=== PATIENT | female | born 1945 | race Caucasian/White ===

== ENCOUNTER 2025-02-05 09:08 | Outpatient (CLI) | payer MEDICARE | END 2025-02-05 09:09 | disposition home or self-care (01) | LOC: CSHLAB 09:08 | PROVIDERS: ATTEND Student in an Organized Health Care Education/Training Program | DX: Z01.818 Encounter for other preprocedural examination (principal); N99.3 Prolapse of vaginal vault after hysterectomy | CPT/HCPCS: 93005; 93010 ==

== ENCOUNTER 2025-02-05 09:30 | Observation (INO) | payer MEDICARE ==
[2025-02-05 10:41] LABS: Hematocrit 39.4 % (34.9-44.5); Hemoglobin 13.2 g/dL (12.0-15.5); Mean Corpuscular Hemoglobin 30.8 pg (27.0-33.0); Mean Corpuscular Volume 91.8 fL (81.6-98.3); Platelet Count 228 10x3/uL (150-450); Red Blood Cell (RBC) Count 4.29 10x6/uL (3.90-5.03); White Blood Cell (WBC) Count 6.28 10x3/uL (3.5-10.5)
[2025-02-25] MEDS ORDERED: Famotidine/PF 20 mg/2ml Vial ONE (07:53)
[2025-02-25] MEDS ORDERED: PROPOFOL 20 ML ONE (08:30)
[2025-02-25] MEDS ORDERED: Ondansetron PF 4 MG/2 ML Vial ONE (08:31)
[2025-02-25] MEDS ORDERED: Rocuronium Bromide 10 MG/ML (10ML VIAL) ONE (08:31)
[2025-02-25] MEDS ORDERED: SUGAMMADEX SODIUM 200 MG/2 ML VIAL ONE (08:31)
[2025-02-25] MEDS ORDERED: Lidocaine 1% PF 5 ML VIAL ONE (08:31)
[2025-02-25] MEDS ORDERED: Lidocaine 1% w/Epinephrine 1:200K 30 ML VIAL ONE (09:22)
[2025-02-25] MEDS ORDERED: CEFAZOLIN 2 GM VIAL ONE (09:35)
[2025-02-25] MEDS ORDERED: Simethicone Chewable 80 MG TAB PO PRN (11:10)
[2025-02-25] MEDS ORDERED: Ondansetron PF 4 MG/2 ML Vial IVP PRN (11:10)
[2025-02-25] MEDS ORDERED: HYDROcodone/Acetaminophen 5/325 mg Tablet PO PRN ×2 (11:10)
[2025-02-25] MEDS ORDERED: diphenhydrAMINE 25 MG CAP PO PRN (11:10)
[2025-02-25] MEDS ORDERED: Bisacodyl 10 MG SUPP PR PRN (11:10)
[2025-02-25] MEDS ORDERED: HYDROmorphone 0.5 MG/0.5 ML SYRINGE ONE ×2 (11:45→12:06)
[2025-02-25 14:19] VITALS: BMI 27.5
[2025-02-25] MEDS: Ketorolac Tromethamine 30 MG (1 mL) VIAL IVP SCH (18:39)
[2025-02-26 06:33] LABS: Hematocrit 32.5 % (34.9-44.5); Hemoglobin 10.9 g/dL (12.0-15.5); Mean Corpuscular Hemoglobin 30.4 pg (27.0-33.0); Mean Corpuscular Volume 90.8 fL (81.6-98.3); Platelet Count 214 10x3/uL (150-450); Red Blood Cell (RBC) Count 3.58 10x6/uL (3.90-5.03); White Blood Cell (WBC) Count 10.03 10x3/uL (3.5-10.5)
[2025-02-26 08:03] VITALS: BP 125/59; TEMP 98.2
[2025-03-02] MEDS ORDERED: Ibuprofen 200 MG TAB PO SCH (23:59)
== END 2025-02-26 11:20 | disposition home or self-care (01) ==
LOC: INTOOBSV 02-25 07:23 → CSHTELE 02-25 07:23
PROVIDERS: ADMIT Student in an Organized Health Care Education/Training Program; ATTEND Student in an Organized Health Care Education/Training Program
PROC: 0ULG7ZZ Occlusion of Vagina, Via Natural or Artificial Opening (ICD-10-PCS; principal; 2025-02-25)
DX: N99.3 Prolapse of vaginal vault after hysterectomy (principal); I10 Essential (primary) hypertension; E03.9 Hypothyroidism, unspecified; Z79.890 Hormone replacement therapy; Z79.899 Other long term (current) drug therapy; Z88.1 Allergy status to other antibiotic agents; Z88.2 Allergy status to sulfonamides
CPT/HCPCS: 57120; 85027 ×2; 86850 ×2; 86900 ×2; 86901 ×2; J1100; J1171; J1885 ×2; J2405; J2704; J3010; J7030; 36415; 36416